=== PATIENT | male | born 1995 | race African-American/Black ===

== ENCOUNTER 2018-12-16 07:07 | Emergency (ER) | payer BC ==
[2018-12-16] MEDS ORDERED: Tetan/Diph/Pertus SYR(Tdap)* 0.5 ML SYR(BOOSTRIX) use SYR IM ONE (07:35)
--- NOTE | 2018-12-16 07:42 | ED ---
Laceration/Wound HPI - HPI Summary HPI Summary: Patient is a 23-year-old male presenting to the ED with the left side of thumb laceration from a hot box checker this morning at work. Laceration is approximately 2.5 cm in length, vertical to the radial side of the thumb. This is superficial. Denies any pain. Bleeding is well controlled on arrival. He denies any other concerns or symptoms. Patient is not on anticoagulation medications. Denies any numbness or tingling. Full range of motion intact. Tetanus is not up-to-date. - History of Current Complaint Stated Complaint: HAND LAC/NEED STITCHES PER PT Time Seen by Provider: 12/16/18 07:16 Hx Obtained From: Patient Mechanism of Injury: Sharp/Blunt Trauma Onset/Duration: Sudden Onset Aggravating: Movement Alleviating: Nothing Timing: Constant Onset Severity: Mild Current Severity: None Pain Intensity: 5 Pain Scale Used: 0-10 Numeric Associated Signs & Symptoms: Negative - Allergy/Home Medications Allergies/Adverse Reactions: Allergies Allergy/AdvReac Type Severity Reaction Status Date / Time No Known Allergies Allergy Verified 12/16/18 07:15 Home Medications: Home Medications Ibuprofen 400 mg PO Q6H PRN 12/16/18 [History Confirmed 12/16/18] PMH/Surg Hx/FS Hx/Imm Hx Previously Healthy: Yes Infectious Disease History: No Infectious Disease History: Denies: Traveled Outside the [place] in Last 30 Days - Social History Occupation: Employed Full-time Lives: With Family Alcohol Use: Daily Alcohol Amount: 16oz beer Hx Substance Use: No Substance Use Type: Reports: None Smoking Status (MU): Light Every Day Tobacco Smoker Review of Systems Constitutional: Negative Negative: Fever, Chills, Fatigue, Skin Diaphoresis Negative: Palpitations, Chest Pain Negative: Shortness Of Breath, Cough Negative: Arthralgia, Myalgia Positive: Other - 2.5cm laceration to thumb. Negative: Rash, Bruising Neurological: Negative All Other Systems Reviewed And Are Negative: Yes Physical Exam Triage Information Reviewed: Yes Vital Signs On Initial Exam: Initial Vitals Temp Pulse Resp BP Pulse Ox 98.8 F 77 16 171/83 100 12/16/18 07:13 12/16/18 07:13 12/16/18 07:13 12/16/18 07:13 12/16/18 07:13 Vital Signs Reviewed: Yes Appearance: Positive: Well-Appearing, Well-Nourished Skin: Positive: Skin Color Reflects Adequate Perfusion, Other - laceration - thumb 2.5cm superficial Eyes: Positive: EOMI, SAUL, Conjunctiva Clear Respiratory/Lung Sounds: Positive: Clear to Auscultation, Breath Sounds Present Cardiovascular: Positive: Pulses are Symmetrical in both Upper and Lower Extremities Musculoskeletal: Positive: Strength/ROM Intact Neurological: Positive: Speech Normal Psychiatric: Positive: Affect/Mood Appropriate Procedures - Laceration/Wound Repair thumb Location: upper extremity Description: Linear Anesthesia: Local, 1.0% Betadine Prep?: No Laceration/Wound Explored: clean Closure: Single Layer Suture Type: Prolene Number of Sutures: 5 Layer Closure?: No Sterile Dressing Applied?: Yes Diagnostics - Vital Signs Vital Signs Temp Pulse Resp BP Pulse Ox 12/16/18 07:13 98.8 F 77 16 171/83 100 - Laboratory Lab Statement: Any lab studies that have been ordered have been reviewed, and results considered in the medical decision making process. Laceration Repair Course/Dx - Course Course Of Treatment: Tetanus updated. Denies any numbness or tingling, full range of motion intact. 2.5 cm vertical superficial laceration noted to the radial side of the left thumb. Timeout obtained. Cleansed wound thoroughly. 0.75 mL lidocaine without epi used as local anesthetic with good effect. 5, 4- 0 prolene sutures used for closure. Appropriated edges well. Gauze wrapped. Suture removal in 6 days. Tetanus updated today. - Clinical Impression Provider Diagnoses: Laceration Discharge - Sign-Out/Discharge Documenting (check all that apply): Patient Departure Patient Received Moderate/Deep Sedation with Procedure: No - Discharge Plan Condition: Stable Disposition: HOME Patient Education Materials: Care For Your Stitches (ED), Laceration (ED) Forms: *Work Release Additional Instructions: Keep the area covered until tonight You may then leave open to air Keep the area gauze wrapped while working Cleanse with soap and water daily Do not scrub the area Tylenol for discomfort - Billing Disposition and Condition Condition: STABLE Disposition: Home
[2018-12-16 08:01] VITALS: BP 148/83
== END 2018-12-16 07:59 | disposition home or self-care (01) ==
LOC: ED 07:07
DX: S61.012A Laceration without foreign body of left thumb without damage to nail, initial encounter (principal); W26.9XXA Contact with unspecified sharp object(s), initial encounter; Y99.0 Civilian activity done for income or pay; F17.210 Nicotine dependence, cigarettes, uncomplicated
CPT/HCPCS: 12001; 90471; 90715; 99282